=== PATIENT | female | born 1970 | race African-American/Black ===

== ENCOUNTER 2022-10-09 08:41 | Outpatient (CLI) | payer SELFPAY ==
[2022-10-09 18:24] LABS: Basophils Percent Auto 0.6 % (0.2-1.2); Eosinophils Absolute Auto 0.1 K/mm3 (0-0.3); Eosinophils Percent Auto 2.4 % (0-4.4); Hematocrit 41.5 % (37.0-47.0); Immature Granulocyte Absolute 0.01 K/mm3 (0.00-0.031); Immature Granulocyte Percent A 0.2 % (0-0.5); Lymphocytes Absolute Auto 1.69 K/mm3 (0.9-3.2); Lymphocytes Percent Auto 33.1 % (18.3-44.2); Mean Corpuscular HGB Conc 31.3 g/dl (32-36); Mean Corpuscular Hemoglobin 30.4 pg (26-34); Mean Platelet Volume 9.6 fl (7.4-10.4); Monocytes Absolute Auto 0.3 K/mm3 (0.1-0.6); Monocytes Percent Auto 6.5 % (2.6-8.5); Neutrophils Absolute Auto 2.9 K/mm3 (1.3-6.7); Neutrophils Percent Auto 57.2 % (45.5-73.1); Platelet Count Result 295 k/mm3 (150-375); Red Blood Count 4.28 M/mm3 (4.2-5.4); Red Cell Distribution Width 12.6 % (11.5-14.5); White Blood Count 5.1 K/mm3 (4.5-10.0)
[2022-10-09 19:15] LABS: Alanine Aminotransferase 20 U/L (6-35); Albumin Level 4.3 g/dL (3.5-5.1); Alkaline Phosphatase 75 U/L (38-126); Anion Gap 4 mmol/L (8-16); Aspartate Amino Transferase 42 U/L (14-36); Bilirubin,Total 0.5 mg/dL (0.2-1.3); Blood Urea Nitrogen 13 mg/dL (7-17); Calcium 9.5 mg/dL (8.4-10.2); Carbon Dioxide 31 mmol/L (22-30); Chloride 104 mmol/L (98-107); Cholesterol 235 mg/dL (0-200); Estimated Glomerular Filt Rate > 60; Glucose 83 mg/dL (65-110); HDL Direct 91 mg/dL; Potassium 4.2 mmol/L (3.4-5.0); Sodium 139 mmol/L (137-145); Triglycerides 63 mg/dL (<150)
[2022-10-09 19:30] LABS: LDL Cholesterol Direct 86 mg/dL
[2022-10-09 19:32] LABS: Thyroid Stimulating Hormone 0.823 uIU/mL (0.465-4.680)
[2022-10-09 20:21] LABS: Hemoglobin A1C 4.7 % (<5.7)
== END 2022-10-09 08:42 | disposition home or self-care (01) ==
LOC: ANHGOSHLAB 08:54
PROVIDERS: PCP Physician Assistant; Visit Provider Physician Assistant
DX: R53.83 Other fatigue (principal); E78.2 Mixed hyperlipidemia; Z13.1 Encounter for screening for diabetes mellitus
CPT/HCPCS: 36415; 80053; 80061; 83036; 84443; 85025

== ENCOUNTER 2022-10-10 03:19 | Emergency (ER) | payer OTHER, SELFPAY ==
[2022-10-10 03:22] VITALS: BP 108/74; PULSE 86; RESP 18; TEMP 36.4; O2SAT 99
--- NOTE | 2022-10-10 03:39 | ED.GENADULT ---
HPI - General Adult General Chief complaint: Extremity Injury, Upper Stated complaint: right shoulder pain Time Seen by Provider: 10/10/22 03:32 History of Present Illness HPI narrative: This is a 51-year-old female presenting ED with complaint of right shoulder pain. Patient states she was lifting heavy objects at work on . And then on Sunday and over the weekend she started developed pain in her right trapezius. It is worse when she moves her arm. She has taken Tylenol, Biofreeze, icy Hot and heat packs over the weekend with some improvement in her symptoms. She denies numbness tingling or weakness. There was no traumatic event. She has had issues with her shoulder in the past that required 2 courses of physical therapy. Related Data Allergies Allergy/AdvReac Type Severity Reaction Status Date / Time No Known Allergies Allergy Verified 10/10/22 03:19 Exam Narrative: APPEARANCE: No apparent distress. Head: atraumatic. EYES: EOMI, NOSE: Atraumatic NECK: Trachea midline RESPIRATORY: No increased rate of breathing CARDIOVASCULAR: RRR, ABDOMINAL: Non-distended MUSCULOSKELETAl: Tenderness to palpation over the right trapezius and rhomboid muscles. No overlying skin changes. No weakness or sensory loss in the arm. Radial ulnar median nerve distributions are functionally intact. Pulses are strong cap refills less than 2 seconds. NEURO: Alert. Moving 4/4 extremities SKIN:: Warm, dry. Normal color PSYCHIATRIC: Normal affect Course Vital Signs Vital signs: Vital Signs Temperature 97.5 F L 10/10/22 03:22 Pulse Rate 86 10/10/22 03:22 Respiratory Rate 18 10/10/22 03:22 Blood Pressure 108/74 10/10/22 03:22 Pulse Oximetry 99 10/10/22 03:22 Oxygen Delivery Room Air 10/10/22 03:22 Temperature 97.5 F L 10/10/22 03:22 Pulse Rate 86 10/10/22 03:22 Respiratory Rate 18 10/10/22 03:22 Blood Pressure 108/74 10/10/22 03:22 Pulse Oximetry 99 10/10/22 03:22 Oxygen Delivery Room Air 10/10/22 03:22 Medical Decision Making [facility] Narrative Medical decision making narrative: -Presentation: 51-year-old female presenting with shoulder pain. 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 She lives alone -External Chart Review: none -Hx from independent Sources: none -Discussion of Management/Consultants: none -Independent interpretation of studies: none Dx tests considered but not ordered: x-ray- no traumatic injury -Procedures: none -Interventions: Motrin, Robaxin -Shared decision making / Disposition: patient will be discharged with primary care follow-up. -RX Motrin Tylenol Robaxin Vital Signs Vital Signs: Vital Signs Temperature 97.5 F L 10/10/22 03:22 Pulse Rate 86 10/10/22 03:22 Respiratory Rate 18 10/10/22 03:22 Blood Pressure 108/74 10/10/22 03:22 Pulse Oximetry 99 10/10/22 03:22 Oxygen Delivery Room Air 10/10/22 03:22 Temperature 97.5 F L 10/10/22 03:22 Pulse Rate 86 10/10/22 03:22 Respiratory Rate 18 10/10/22 03:22 Blood Pressure 108/74 10/10/22 03:22 Pulse Oximetry 99 10/10/22 03:22 Oxygen Delivery Room Air 10/10/22 03:22 Discharge Plan Discharge Clinical Impression: Muscle strain Patient Disposition: Home, Self-Care Condition: Stable Instructions: Antibiotic Form, Musculoskeletal Pain (ED) Additional Instructions: You were seen in the emergency department for shoulder pain. Please take Motrin Tylenol Robaxin for symptoms. Please follow-up your primary care physician. Follow-up/Referrals: Yamil,PANKAJ Dietz [Primary Care Provider] -
[2022-10-10] MEDS: methocarbamoL 750 MG TABLET 1500 MG PO (03:49)
[2022-10-10] MEDS: IBUPROFEN 400 MG TABLET 800 MG PO (03:50)
== END 2022-10-10 03:54 | disposition home or self-care (01) ==
PROVIDERS: Emergency Provider Emergency Medicine; PCP Physician Assistant
DX: S46.911A Strain of unspecified muscle, fascia and tendon at shoulder and upper arm level, right arm, initial encounter (principal); X50.0XXA Overexertion from strenuous movement or load, initial encounter
CPT/HCPCS: 99283; A9270

== ENCOUNTER 2023-12-07 15:30 | Outpatient (RCR) | payer OTHER, SELFPAY ==
--- NOTE | 2023-10-30 14:11 | OPREHPOC ---
Outpatient Therapy Plan of Care This is a Multidisciplinary Plan of Care that may contain components documented by all disciplines (PT, OT, and ST.) PT Problem 1 PT Problem #1 Knowledge Deficit PT Goal 1 Goal * indep with HEP Target Visit 10 PT Problem 2 PT Problem #2 Pain PT Goal 1 Goal 1* decrease pain to 5/10 at worst 2* self assessment LE functional scale rating of 48% limitation in activity level Target Visit 10 PT Problem 3 PT Problem #3 Impaired Flexibility PT Goal 1 Goal increase R ankle ROM to improve gait pattern and balance skills: in long sitting position 1* DF 10' 2* PF 45' 3* inversion 20' 4* eversion 10' Target Visit 10 PT Problem 4 PT Problem #4 Impaired Strength PT Goal 1 Goal increase strength of R ankle/foot to improve gait and balance skills: 1* single leg standing x 10 seconds with good stability 2* with walking, 300', good heel strike R 3* with walking 300', equal stance phase R/L 4* standing bilateral ankle PF x 20 reps without UE support Target Visit 10
--- NOTE | 2023-10-30 14:11 | PTOPEVAL1 ---
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 sleeping OK at night; Assessment PT Clinical Summary Karis has the diagnosis of 5th metatarsal fracture s/p fall and Achilles tendonitis. She was immobilized/ non surgical. Self assessment LE functional scale of 69% limitation in activity level. She has not been working, but starts a new job tomorrow. Walking and standing increase her pain. And she has not done much activity due to fracture, or any leg/ ankle exercises. With the evaluation: she has decreased ROM and strength of R ankle and toe flexion; 2 minute walking test distance of 425' with pain increase to 6/10; gait pattern with limp on R LE and decreased heel strike. Slight edema over R ankle with the 3 circumferential measurements within 1 cm of L ankle. Skilled PT services are indicated for modalities to decrease pain; therapeutic exercises and activities to increase ankle ROM and strength, balance and proprioception, with education for HEP and gait retraining.
--- NOTE | 2023-11-20 15:18 | PCPTNOTE ---
Canceled reason unknown. AKS
--- NOTE | 2023-12-07 16:15 | PTOPDC ---
Assessment and note entered by Khushi Santos, PT Discharge Report Assessment Status Discharge Diagnosis 5th metatarsal fracture, achilles tendinitis R Onset August 2023 Subjective Information doing better; wearing the compression sock and that helps; doing exercises at home; feel like OK to be finished with therapy; Reported Pain Level Pain Score Self Report Additional Pain Score Comments pain range in the past week of 0-2/10; sharp, shooting pain that lasts only a few seconds when walking, 2-3 x/day over top of foot; tender sometimes over lateral malleoli use ice and lidocain rub for the pain can be up on feet/ walking- standing about 4 hours then rest; Assessment PT Clinical Summary Karis has received 8 PT sessions. Compared to the initial evaluation: pain from 5-10/10 to 0-2/10; increase reported standing- walking tolerance from 3-4 to 4 hours; self assessment with LE functional scale from 69% to 14% limitation; wearing the compression socks decrease her pain; increase active ROM of ankle with all motions- now equal to L ankle; tightness reported over lateral malleoli with inversion and eversion motions; good gait pattern; education for HEP. The goals were achieved, except single leg standing time. Discharge PT services. Karis is to continue with the HEP. Plan of Care PT Services Indicated No
== END 2023-12-10 08:27 | disposition home or self-care (01) ==
LOC: ANHPT 15:30
PROVIDERS: PCP Physician Assistant
DX: M79.671 Pain in right foot (principal); M76.61 Achilles tendinitis, right leg; S92.351D Displaced fracture of fifth metatarsal bone, right foot, subsequent encounter for fracture with routine healing
CPT/HCPCS: 97014; 97016; 97110; 97116; 97140; 97161; 97530; G0283

== ENCOUNTER 2023-12-08 15:02 | Emergency (ER) | payer OTHER, MEDICAID, SELFPAY ==
--- NOTE | ~2023-12-08 | XR_ITS ---
EXAMINATION: XR ankle RT min 3V DATE: 12/08/2023 16:17 INDICATION: Right ankle pain TECHNIQUE: Anteroposterior, oblique, mortise, and lateral views of the right ankle were obtained. COMPARISON: None. FINDINGS: Alignment is normal. No fracture. Joint spaces are well maintained. Mild subarticular cystic change along the dorsal distal articular surface of the talus. Small plantar calcaneal spur. No cortical ero sions or periosteal reaction. No ankle joint effusion. Focal soft tissue swelling at the dorsal/media l hindfoot. IMPRESSION: 1. Nonspecific soft tissue swelling at the dorsomedial hindfoot. No acute osseous abnormality. Reviewed, dictated and finalized at location A. IMPRESSION: 1. Nonspecific soft tissue swelling at the dorsomedial hindfoot. No acute osseo us abnormality.
[2023-12-08 15:05] VITALS: BP 109/69; PULSE 90; RESP 20; TEMP 36.3; O2SAT 99
--- NOTE | 2023-12-08 16:23 | ED.EXTPRO ---
HPI - Extremity Problem General Chief complaint: Extremity Problem,Nontraumatic Stated complaint: Swolling and pain to L foot Time Seen by Provider: 12/08/23 15:24 History of Present Illness HPI Narrative: 53-year-old female presents to the emergency department for evaluation for recurrent right ankle pain. Patient states the pain has been bothering her for many months. Patient describes the pain as being worsened with walking and ambulation. Patient does have lower arches on both feet. Patient denies any fall or injury. Patient denies any pain, proximal tib-fib or in the foot. Patient does have follow-up scheduled with primary care physician Related Data Allergies Allergy/AdvReac Type Severity Reaction Status Date / Time No Known Allergies Allergy Verified 12/08/23 15:03 Review of Systems Review of Systems: All systems reviewed & are unremarkable except as noted in HPI and below Exam Narrative: APPEARANCE: Well appearing, no pain, no distress, well-nourished. HEAD: normocephalic, atraumatic. EYES: PERRLA/EOMI, conjunctivae clear. NOSE: Normal no drainage EARS:TMS clear with good light reflex. THROAT: Pharynx clear, no exudate. NECK: Supple. No adenopathy, no masses. RESPIRATORY: Airway patent, respirations nonlabored. Clear to auscultation bilaterally, no rales, rhonchi, wheezing. CARDIOVASCULAR: Regular rate and rhythm without murmurs rubs or gallops. ABDOMINAL: Soft, nontender, nondistended, normal bowel sounds MUSCULOSKELETAL: Left medial ankle tenderness to palpation with no deformity or edema NEURO: Alert. Cranial nerves II through XII intact. Grossly intact Course Vital Signs Vital signs: Vital Signs Temperature 97.3 F L 12/08/23 15:05 Pulse Rate 90 12/08/23 15:05 Respiratory Rate 12/08/23 15:05 Blood Pressure 109/69 12/08/23 15:05 Pulse Oximetry 99 12/08/23 15:05 Oxygen Delivery Room Air 12/08/23 15:05 Temperature 97.3 F L 12/08/23 15:05 Pulse Rate 90 12/08/23 15:05 Respiratory Rate 20 12/08/23 15:05 Blood Pressure 109/69 12/08/23 15:05 Pulse Oximetry 99 12/08/23 15:05 Oxygen Delivery Room Air 12/08/23 15:05 MDM - Extremity (Nontraumatic) MDM Narrative Medical decision making narrative: 53-year-old female presents emergency department for evaluation of 3 months of left ankle pain. X-ray showed no acute fractures or dislocations. Patient wound was provided Franck wrap and crutches for limited weight-bearing and rest. Patient was also encouraged to have close follow-up with Orthopedics. All questions concerns were addressed patient was well-appearing at time of discharge. Differential Diagnosis Differential diagnosis: Likely other (Ankle fracture, ankle sprain, ankle contusion) Discharge Plan Discharge Clinical Impression: Ankle pain, chronic Patient Disposition: Home, Self-Care Condition: Stable Instructions: Antibiotic Form, Ankle Sprain (ED), Arthralgia (ED) Additional Instructions: Franck wrap for comfort, crutches for limited weight-bearing. Have close follow-up with Orthopedics. If you have any worsening symptoms then please call or return to the emergency department. Prescriptions: No Action ibuprofen 800 mg tablet 800 mg PO TID PRN (Reason: pain) 7 Days Qty: 21 0RF acetaminophen 500 mg tablet 1,000 mg PO TID PRN (Reason: felicia) 7 Days Qty: 42 0RF methocarbamol 750 mg tablet 1,500 mg PO TID Qty: 30 0RF Follow-up/Referrals: Harpreet Fung MD [Physician] - Yamil,PANKAJ Dietz [Primary Care Provider] -
--- NOTE | 2024-01-01 13:51 | PC.NURSE ---
LATE ENTRY This note is being entered to document information to the patient's record. The following information was omitted on [12/08/2023], by [this RN]. Correct documentation to be right ankle instead of left.
== END 2023-12-08 17:28 | disposition home or self-care (01) ==
PROVIDERS: Emergency Provider Emergency Medicine; PCP Physician Assistant
DX: M25.571 Pain in right ankle and joints of right foot (principal); G89.29 Other chronic pain
CPT/HCPCS: 73610; 99283

== ENCOUNTER 2024-10-28 10:00 | Outpatient (RCR) | payer OTHER, SELFPAY ==
--- NOTE | 2024-08-29 09:59 | OPREHPOC ---
Outpatient Therapy Plan of Care This is a Multidisciplinary Plan of Care that may contain components documented by all disciplines (PT, OT, and ST.) PT Problem 1 PT Problem #1 Knowledge Deficit PT Goal 1 Goal / Goal Update *independent with HEP Target Visit 8 PT Problem 2 PT Problem #2 Pain PT Goal 1 Goal / Goal Update * pt report pain at worst of 11/27 Target Visit 8 PT Goal 2 Goal / Goal Update * pt report 2 headaches/week * radicular pain into R arm to elbow at worst Target Visit 8 PT Problem 3 PT Problem #3 Impaired Flexibility PT Goal 1 Goal / Goal Update * decrease muscle spasms and tightness with improved cervical ROM for ease with home and self care tasks: 1* cervical rotation to R 80' no pain with cervical active 2* rotation R 3* flexion 4* retraction 5* side bend to R Target Visit 8 PT Problem 4 PT Problem #4 Impaired Strength PT Goal 1 Goal / Goal Update *increase cervical thoracic strength, pt able to maintain correct neck and shoulder posture during PT session Target Visit 8
--- NOTE | 2024-08-29 10:00 | PTOPEVAL1 ---
Assessment and note entered by Khushi Santos, PT Evaluation Information Assessment Status Evaluation ICD-10 Condition Codes (PT) Cervicalgia M54.2,Pain in right knee M25.561 Onset May 2024 Subjective Information to ER in May due to increase neck pain; started working in [employer] and more lifting, more neck pain and had to quit; got another job with less lifting. 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 She reports her neck is the main concern at this time. With headaches and sleep disrupted. Self assessment Neck Disability Index rating of 36% limitation and radicular pain into R UE to palm. 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 With the evaluation: decreased cervical rotation to R with pain, also pain with cervical flexion, retraction and side bend to R; R shoulder active ROM is WNL with reports of pain; spasms and tenderness with palpation over R and L cervical and upper traps. Skilled PT services are indicated for modalities to decrease pain and spasms; therapeutic exercises to improve posture and position and cervical flexibility with education for HEP and body mechanics. Plan of Care Interventions Electrical Stimulation,Hot Pack/Cold Pack,Manual Therapy,Mechanical Traction,Neuro Re-education, Patient/Caregiver Education,Therapeutic Activities ,Therapeutic Exercise,Ultrasound,Other Other Interventions taping, dry needling--pt agreed to it PT Services Indicated Yes Treatment Frequency and 1-2x/wk for 8 visits Duration These treatments will address the objective and functional deficits as defined above. The patient will be advanced safely and appropriately in order for the patient to progress towards his/her prior level of function. Additional exercises will be introduced and as well as a comprehensive home exercise program upon discharge, if needed, ?to ensure carryover of functional gains achieved in the clinic. This treatment plan has been reviewed and agreement upon by the patient.
--- NOTE | 2024-10-10 11:17 | PCPTNOTE ---
pt called and left a message on voice mail to cancel today's reeval appt. This message received by PT 15 minutes after the appt time.
--- NOTE | 2024-10-28 10:41 | OPREHPOC ---
Outpatient Therapy Plan of Care This is a Multidisciplinary Plan of Care that may contain components documented by all disciplines (PT, OT, and ST.) PT Problem 1 PT Problem #1 Knowledge Deficit PT Goal 1 Goal / Goal Update *independent with HEP 10-28-24 progress to see , await new orders to continue treatment goal met continue to progress HEP and education Target Visit 16 PT Problem 2 PT Problem #2 Pain PT Goal 1 Goal / Goal Update * pt report pain at worst of 11/27 10-28-24 progress to see , await new orders to continue treatment goal not met, 810 at worst continue towards goal Target Visit 16 PT Goal 2 Goal / Goal Update 1* pt report 2 headaches/week 2 * radicular pain into R arm to elbow at worst 10-28-24 progress to see , await new orders to continue treatment goal 1 met continue towards goal 2 Target Visit 16 PT Problem 3 PT Problem #3 Impaired Flexibility PT Goal 1 Goal / Goal Update * decrease muscle spasms and tightness with improved cervical ROM for ease with home and self care tasks: 1* cervical rotation to R 80' no pain with cervical active 2* rotation R 3* flexion 4* retraction 5* side bend to R 10-28-24 progress to see , await new orders to continue treatment goals 2,3,4,5 met NEW goals: 1* active cervical rotation R 80' 2* active cervical rotation L 80' 3* no pain with R shoulder IR motion Target Visit 16 PT Problem 4 PT Problem #4 Impaired Strength PT Goal 1 Goal / Goal Update *increase cervical thoracic strength, pt able to maintain correct neck and shoulder posture during PT session 10-28-24 progress to see await new orders to continue treatment goal partially met continue towards Target Visit 16
--- NOTE | 2024-10-28 10:41 | PTOPPROG ---
Assessment and note entered by Khushi Santos, PT Assessment Status Progress ICD-10 Condition Codes (PT) Cervicalgia M54.2 R shoulder pain Onset May 2024 Subjective Information neck and shoulder still hurt, some better, but still bother me; going back to the dr next week and hope to get an MRI done have been doing the exercises at home; PAIN: range in the past week 3-8/10; nerve pain: R side of neck and shoulder- front and back of shoulder; throb in R side of head; intermittent pain into R palm increase pain: lifting heavy things, lie on stomach and lift arm up/back decrease pain: resting, heat, tiger balm ointment have headache 1-2x/wk --off and on through out the day report with sleeping 1-2x/week awaken due to pain Assessment PT Clinical Summary Mar has received 8 PT sessions, from August 29 to today. She called and canceled 1 appointment. Compared to the initial evaluation: pain rating from 5-10/10 to 3-8/10; continues to have radicular pain intermittent into R palm of her hand; reported headaches from 1-2x/day to 1-2 x/ wk and with sleeping awaken 2-3 x/night to 1-2x/wk due to pain; self assessment with Neck Index rating from 36% to 34% limitation in activity level; cervical rotation to R and L is slightly less ROM; cervical active flexion, extension, rotation R/L and side bend R/L do not increase pain; R shoulder IR increases pain; education completed for HEP, pain management and posture. The goals were partially achieved. She is to follow up with her medical provider next week, discuss her status. If PT is to continue, she is to obtain a new script. Plan of Care Interventions Electrical Stimulation,Hot Pack/Cold Pack,Manual Therapy,Mechanical Traction,Neuro Re-education, Patient/Caregiver Education,Therapeutic Activities ,Therapeutic Exercise,Ultrasound,Other Other Interventions taping, PT Services Indicated Yes Treatment Frequency and 1-2x/wk for 8 visits Duration These treatments will address the objective and functional deficits as defined above. The patient will be advanced safely and appropriately in order for the patient to progress towards his/her prior level of function. Additional exercises will be introduced and as well as a comprehensive home exercise program upon discharge, if needed, ?to ensure carryover of functional gains achieved in the clinic. This treatment plan has been reviewed and agreement upon by the patient.
--- NOTE | 2024-12-05 10:58 | PCPTNOTE ---
PHYSICAL THERAPY DISCHARGE 12-05-24 PANKAJ Flores Mar has not returned for any additional therapy treatment since the progress report dated 10-28-24. Discharge PT.
== END 2024-11-27 23:59 | disposition home or self-care (01) ==
LOC: ANHPT 10:00
PROVIDERS: PCP Physician Assistant; Visit Provider Physician Assistant
DX: M54.2 Cervicalgia (principal); M25.511 Pain in right shoulder; M25.561 Pain in right knee
CPT/HCPCS: 97014; 97110; 97140; 97161; 97530; G0283

== ENCOUNTER 2025-01-05 12:10 | Emergency (ER) | payer SELFPAY ==
[2025-01-05 12:20] VITALS: BP 131/76; PULSE 98; RESP 18; TEMP 36.8; O2SAT 100
--- OUTSIDE RECORDS SUMMARY | 2025-01-05 13:04 | XMS_ITS | Clinical Summary ---
Author Organization [facility] Health Address [address] [place] [address] Care Team Providers Care Anchor Operator Name Role Phone Mirela Lobo PA-C Primary Care Provider [phone] Source Comments [facility],non-owned Affiliates and Associated Physician Practices is amultiple site organization consisting of ambulatory clinics and hospital sitesin [place], [place], [place] and [place]. This disclosure is being madepursuant to the Care Everywhere program and may not contain all information available regarding this patient. Last updated 18.[facility] [employer] Allergies No known active allergies Encounters Date Type Department Care Team Description 12/30/2024 Telephone [facility] - Orthopedics [address] [place] [address] Naina Curran Appointment from Last 3 Months Social History Tobacco Use Types Packs/Day Years Used Date Smoking Tobacco: Never Alcohol Use Standard Drinks/Week Comments Yes 0 (1 standard drink = 0.6 oz pur e alcohol) socially Comments Unknown Sex and Gender Information Value Date Recorded Sex Assigned at Not on file Legal Sex Female 7:09 AM CDT Gender Identity Not on file Sexual Orientation Not on file Last Filed Vital Signs Vital Sign Reading Time Taken Comments Blood Pressure 118/82 07/14/2019 1:54 PM UNIX ADMINISTRATOR Pulse 95 07/14/2019 1:54 PM UNIX ADMINISTRATOR Temperature 36.5 C (97.7 F) 07/14/2019 1:54 PM UNIX ADMINISTRATOR Respiratory Rate 18 07/14/2019 1:54 PM UNIX ADMINISTRATOR Oxygen Saturation 99% 07/14/2019 1:54 PM UNIX ADMINISTRATOR Inhaled Oxygen Concentration - - Weight 68 kg (150 lb) 07/14/2019 1:54 PM UNIX ADMINISTRATOR Height 177.8 cm (5' 10) 07/14/2019 1:54 PM UNIX ADMINISTRATOR Body Mass Index 21.52 07/14/2019 1:54 PM UNIX ADMINISTRATOR Plan of Treatment Health Maintenance Due Date Last Done Comments COLOGUARD (AGES 45-75) - COL ON CA SCREENING 1972 COLON MONITORING 1972 COLONOSCOPY - COLON CA SCREENING 1972 CT COLONOGRAPHY - COLON CA SCREENING 1972 Colorectal Cancer Screening 1972 FIT - COLON CA SCREENING 1972 FLEX SIG - COLON CA SCREENING 1972 LIPID TESTING 1972 MAMMOGRAM 1972 HIV SCREENING 11/19/1987 HEPATITIS C SCREENING 11/14/1990 DTAP/TDAP/TD VACCINES (1 - Tdap) 11/19/1991 HEPATITIS B VACCINE (1 of 3 - 19+ 3-dose series) 11/19/1991 PAP SMEAR 1993 PNEUMOCOCCAL VACCINE 50+ (1 of 1 - PCV) 2022 ZOSTER VACCINE (1 of 2) 2022 COVID-19 VACCINE (1 - 2023-2 5 season) 2024 DEPRESSION SCREENING 05/21/2024 INFLUENZA VACCINE (#1) 2025 HIB VACCINE Aged Out No longer eligi ble based on patient's age to complete this topic HPV VACCINE Aged Out No longer eligi ble based on patient's age to complete this topic MENINGOCOCCAL (Group B) VACC INE SHARED DECISION-MAKING Aged Out No longer eligibl e based on patient's age to complete this topic MENINGOCOCCAL GROUPS A/C/Y/W VACCINE Aged Out No longer eligible b ased on patient's age to complete this topic Insurance [facility] Care Teams Anchor Operator Relationship Specialty Start Date End Date Mirela Lobo PA-C PCP - General Physician Retail Account Executive 07/15/19
--- OUTSIDE RECORDS SUMMARY | 2025-01-05 13:04 | XMS_ITS | Encounter Summary ---
Author Organization [facility] Healthcare Address [address] [place] [address] Care Team Providers Care Director Of Field Sales Name Role Phone Mirela Lobo Primary Care Provider [phone] Reason for Visit * Reason Onset Date Comments Med Refill 12/23/2024 Encounter Details Date Type Department Care Team (Late st Contact Info) Description 12/23/2024 Telephone [facility] Family Medicine [address] [place] [address] Mirela Lobo PA [address] [place] [address] Med Refill Social History Tobacco Use Types Packs/Day Years Used Date Smoking Tobacco: Never Smokeless Tobacco: Never Alcohol Use Standard Drinks/Week Comments Yes 0 (1 standard drink = 0.6 oz pur e alcohol) AUDIT-C Answer Date Recorded Q1: How often do you have a drink containing alc ohol? Monthly or less 11/04/2024 Q2: How many drinks containi ng alcohol do you have on a typical day when you are drinking? 1 or 2 11/04/2024 Q3: How often do you have si x or more drinks on one occasion? 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 Not on file Not on fi le Not on file documented as of this encounter Miscellaneous Notes * Telephone Encounter - Shayy Hernandez MA - 12/23/2024 4:29 PM CDT Pt aware and new med sent to [facility]. * Telephone Encounter - Mirela Lobo PA - 12/23/2024 3:00 PM CDT We could start Gabapentin 100mg to see if it helps with the pain. Side effects include sedation so be careful until she is use to the medication. The sedation is usually less at lower doses so we will increase slowly as needed for symptoms and as she tolerates. * Telephone Encounter - Lyudmila Davies - 12/23/2024 1:46 PM CDT Medical Question/Miscellaneous Caller???s Concern: patient is asking for a different muscle relaxer for her back, Meloxicam is notstrong enough. She had to miss work today due to the pain [id number] - [facility] [address] Does message need to be routed? Yes-Action Needed documented in this encounter Plan of Treatment Not on file documented as of this encounter Visit Diagnoses Not on filedocumented in this encounter Care Teams Director Of Field Sales Relationship Specialty Start Date End Date Mirela Lobo PA [address] [place] [address] PCP - General Internal Medicine 01/28/19 documented as of this encounter
--- OUTSIDE RECORDS SUMMARY | 2025-01-05 13:04 | XMS_ITS | Clinical Summary ---
Author Organization [facility] Address [address] [place] [address] Care Team Providers Care Drum Plater Name Role Phone Mirela Lobo Primary Care Provider [phone] Allergies No known active allergies Medications multivit-min/fe rrous fumarate (MULTI VITAMIN ORAL) Take 1 tablet by mouth daily Active cetirizine (ZyrTEC) 10 mg tablet Take 1 tablet (10 mg total) by mouth daily 90 tablet 3 4 Active fluticasone propionate (FLONASE) 50 mcg/actuation nasal spray Administer 1 spray into each nostril daily 48 g 3 4 Active montelukast (SINGULAIR) 10 mg tablet Take 1 tablet (10 mg total) by mouth nightly 90 tablet 3 5 Active gabapentin (NEURONTIN) 100 mg capsuleIndicati ons:Cervical radiculopathy,N ruchi pain Take 1 capsule (100 mg total) by mouth 3 (three) times a day 90 capsule 5 01/23/20 25 Active Active Problems Problem Noted Date Diagnosed Date Cervical radiculopathy 11/16/2024 BMI 30.0-30.9,adult 11/04/2024 Assessment & Plan (11/04/2024 9:04 AM CDT): Discussed the patient's BMI. The BMI is above average. BMI management plan is completed. BMI Follow-up includes: nutrition counseling, exercise counseling and education provided. Neck pain 08/09/2024 Assessment & Plan (08/09/2024 10:01 PM CDT): Patient has noticed increased neck pain that seems to go into the right arm. Pain with extension and rotation of the neck. Will at times have numbness that runs all the way down into the right palm but not all the way to the fingers. Will start with a C-spine x-ray. Encouraged physical therapy. If symptoms persist beyond physical therapy may need an MRI of the C-spine. She has also noticed increased knee pain. Will do therapy simultaneously. Known known injury Chronic pain of right knee 08/09/2024 Assessment & Plan (08/09/2024 10:00 PM CDT): She has also noticed increased knee pain. Will do therapy simultaneously. Known known injury Candidiasis of vagina 10/17/2023 Herpes simplex 10/17/2023 Uterine leiomyoma 10/17/2023 Closed displaced fracture of fifth metatarsal bone of right foot 10/04/2023 Assessment & Plan (03/19/2024 8:49 AM CDT): Patient is doing well overall. X-rays and physical exam indicate that her fracture is well healed. At this time, she may continue to advance activity as tolerated and may follow up p.r.n. She expressed understanding and agreement with the plan. Assessment & Plan (12/17/2023 12:05 PM CDT): The patient's fracture appears to be healing very well, with minimal pain on exam and good healing based on x-ray imaging. She will continue to advance her activity as tolerated in a sturdy tennis shoe. She will follow up in 3 months for final x- rays. She expressed understanding and agreement with the plan. Assessment & Plan (10/04/2023 5:40 AM CDT): X-ray confirmed closed displaced fracture of the 5th metatarsal at the base in the right foot. Has not had an x-ray and over a month. Will obtain. Advised because it is at the base she probably should see Podiatry or ortho. She would like to get the x-ray 1st. Order provided follow-up pending the results Continue with hard soled shoe and elevation, ice and anti-inflammatories as tolerated Annual physical exam 07/18/2023 Assessment & Plan (08/09/2024 9:58 PM CDT): Encouraged healthy lifestyle, good nutrition and exercise. Encouraged Calcium and Vitamin D and weight bearing exercise for bone health. Reviewed immunizations Reviewed age appropirate screenings. Assessment & Plan (07/18/2023 10:45 PM BIOMASS BOILER OPERATOR): Encouraged healthy lifestyle, good nutrition and exercise. Encouraged Calcium and Vitamin D and weight bearing exercise for bone health. Reviewed immunizations Reviewed age appropirate screenings. Skin lesion 07/18/2023 Chronic right shoulder pain 07/18/2023 Assessment & Plan (07/18/2023 10:43 PM BIOMASS BOILER OPERATOR): Patient is complaining of right shoulder pain and left-sided sciatica. Discussed anti-inflammatories to help with her symptoms. Offered x-rays but patient declined. Offered physical therapy and patient declined. If symptoms persist and she decides she wants to pursue she may call at any time Sciatica of left side 07/18/2023 Assessment & Plan (07/18/2023 10:43 PM BIOMASS BOILER OPERATOR): Patient is complaining of right shoulder pain and left-sided sciatica. Discussed anti-inflammatories to help with her symptoms. Offered x-rays but patient declined. Offered physical therapy and patient declined. If symptoms persist and she decides she wants to pursue she may call at any time Breast cancer screening by mammogram 03/29/2022 Assessment & Plan (08/09/2024 9:58 PM CDT): Mammogram order provided Assessment & Plan (07/18/2023 10:44 PM BIOMASS BOILER OPERATOR): Mammogram order provided Assessment & Plan (03/29/2022 2:50 PM BIOMASS BOILER OPERATOR): Mammogram order provided Diabetes mellitus screening 03/29/2022 Assessment & Plan (07/18/2023 10:44 PM BIOMASS BOILER OPERATOR): Check labs Assessment & Plan (09/26/2022 9:04 PM CDT): Check labs Assessment & Plan (03/29/2022 2:51 PM BIOMASS BOILER OPERATOR): Check labs Fatigue 02/25/2021 Assessment & Plan (08/09/2024 9:58 PM CDT): Probably multifactorial. Check labs and followup to re-evaluate Assessment & Plan (07/18/2023 10:44 PM BIOMASS BOILER OPERATOR): Probably multifactorial. Check labs and followup to re-evaluate Assessment & Plan (09/26/2022 9:04 PM CDT): Probably multifactorial. Check labs and followup to re-evaluate Assessment & Plan (03/29/2022 2:50 PM BIOMASS BOILER OPERATOR): Probably multifactorial. Check labs and followup to re-evaluate Assessment & Plan (02/25/2021 8:48 AM CDT): Probably multifactorial. Check labs and followup to re-evaluate Leg cramps 02/25/2021 Assessment & Plan (02/25/2021 8:49 AM CDT): Check labs including magnesium to rule out electrolyte issues. Encouraged stretching and staying hydrated. If they persist she is to follow up for further evaluation Seasonal allergies 03/06/2020 Assessment & Plan (08/09/2024 9:58 PM CDT): Stable with Zyrtec Singulair and Flonase Assessment & Plan (07/18/2023 10:45 PM BIOMASS BOILER OPERATOR): Continue Zyrtec Flonase and Singulair Assessment & Plan (09/26/2022 9:03 PM CDT): Continue Zyrtec Singulair and Flonase Assessment & Plan (03/29/2022 2:49 PM BIOMASS BOILER OPERATOR): Continue with Singulair Zyrtec and Flonase. Refills sent to pharmacy. Assessment & Plan (02/23/2021 11:23 PM CDT): Continue current regimen of Flonase and Zyrtec and Singulair. Assessment & Plan (03/06/2020 10:59 PM CDT): Continue current regimen. Mixed hyperlipidemia 02/21/2019 Overview (02/21/2019): HDL is excellent Assessment & Plan (08/09/2024 9:58 PM CDT): Encouraged patient to follow low fat/low chol diet like the Mediterranean diet. Increase good fats in the diet. Increase exercise. Monitor labs as needed. Assessment & Plan (07/18/2023 10:44 PM BIOMASS BOILER OPERATOR): Encouraged patient to follow low fat/low chol diet like the Mediterranean diet. Increase good fats in the diet. Increase exercise. Monitor labs as needed. Assessment & Plan (03/29/2022 2:49 PM BIOMASS BOILER OPERATOR): Encouraged patient to follow low fat/low chol diet like the Mediterranean diet. Increase good fats in the diet. Increase exercise. Monitor labs as needed. HDL is excellent but her LDL and total continue to increase. Will recheck labs in 6 months and reassess at that time. Assessment & Plan (02/23/2021 11:22 PM CDT): Managing with diet. HDL is excellent Assessment & Plan (03/06/2020 10:53 PM CDT): Encouraged patient to follow fat/low chol diet like the Mediterranean diet. Increase good fats in the diet. Increase exercise. Monitor labs as needed. HDL is excellent Resolved Problems Problem Noted Date Diagnosed Date Resolved Date BMI 28.0-28.9,adult 07/31/2024 06/17/20 25 Assessment & Plan (07/31/2024 8:53 AM CDT): Discussed the patient's BMI. The BMI is above average. BMI management plan is completed. BMI Follow-up includes: nutrition counseling, exercise counseling and education provided. BMI 25.0-25.9,adult 09/26/2022 06/27/19 24 Assessment & Plan (09/26/2022 2:41 PM CDT): Weight/BMI is in healthy range. Continue healthy lifestyle to maintain. BMI 26.0-26.9,adult 03/29/2022 08/01/19 25 Assessment & Plan (10/04/2023 5:40 AM CDT): Weight/BMI is in healthy range. Continue healthy lifestyle to maintain. Assessment & Plan (07/18/2023 10:44 PM BIOMASS BOILER OPERATOR): Weight/BMI is in healthy range. Continue healthy lifestyle to maintain. Assessment & Plan (03/29/2022 2:21 PM BIOMASS BOILER OPERATOR): Weight/BMI is in healthy range. Continue healthy lifestyle to maintain. Colon cancer screening 03/29/202207/18 Assessment & Plan (09/26/2022 9:04 PM CDT): Colonoscopy scheduled in February with Dr. Ford Assessment & Plan (03/29/2022 2:51 PM BIOMASS BOILER OPERATOR): Refer to [facility] for colonoscopy screening. BMI 25.0-25.9,adult 02/25/2021 03/29/20 22 Assessment & Plan (02/25/2021 8:06 AM CDT): Obesity is unchanged. Discussed the patient's BMI. The BMI is above average. BMI management plan is completed. BMI Follow-up includes: nutrition counseling, exercise counseling and education provided. Influenza vaccine refused 03/06/2020 Assessment & Plan (03/29/2022 2:49 PM BIOMASS BOILER OPERATOR): Flu vaccine updated in the office Assessment & Plan (02/25/2021 8:46 AM CDT): Encouraged vaccine. Reviewed risks/ benefits. Patient refuses and accepts risks. Assessment & Plan (03/06/2020 10:57 PM CDT): Encouraged vaccine. Reviewed risks/ benefits. Patient refuses and accepts risks. BMI 24.0-24.9, adult 02/24/2019 021 Assessment & Plan (03/06/2020 10:54 PM CDT): Weight/BMI is in healthy range. Continue healthy lifestyle to maintain. Assessment & Plan (02/24/2019 3:50 PM CDT): Weight/BMI is in healthy range. Continue healthy lifestyle to maintain. Annual physical exam 02/24/2019 024 Assessment & Plan (03/29/2022 2:49 PM BIOMASS BOILER OPERATOR): Encouraged healthy lifestyle, good nutrition and exercise. Encouraged Calcium and Vitamin D and weight bearing exercise for bone health. Reviewed immunizations Reviewed age appropirate screenings. Assessment & Plan (02/23/2021 11:22 PM CDT): Encouraged healthy lifestyle, good nutrition and exercise. Encouraged Calcium and Vitamin D and weight bearing exercise for bone health. Reviewed immunizations Reviewed age appropirate screenings. Assessment & Plan (03/06/2020 10:54 PM CDT): Encouraged healthy lifestyle, good nutrition and exercise. Encouraged Calcium and Vitamin D and weight bearing exercise for bone health. Reviewed immunizations Reviewed age appropirate screenings. Assessment & Plan (02/25/2019 8:53 PM CDT): Encouraged healthy lifestyle, good nutrition and exercise. Encouraged Calcium and Vitamin D and weight bearing exercise for bone health. Reviewed immunizations Reviewed age appropirate screenings. Breast cancer screening 02/24/2019 10/0 10/2020 Assessment & Plan (02/25/2019 8:53 PM CDT): Mammogram order provided Encounters Date Type Department Care Team Description 12/23/2024 Orders Only [address] [place] [address] Mirela Lobo PA 12/23/[address] [place] [phone] Mirela Lobo PA Med Refill 12/18/2024 Results Follow-Up [address] [place] [phone] Mirela Lobo PA MRI Cervical Spine WO Contrast 12/13/2024 8:36 AM CDT - 12/13/2024 11:59 PM CDT Hospital Encounter [facility] MRI [address] [place] [address] Neck pain Discharge Disposition: Discharge to home or self care 11/04/2024 9:00 AM CDT Office Visit [address] [place] [phone] Mirela Lobo PA Cervical radiculopathy (Primary Dx); Neck pain; BMI 30.0-30.9,adult from Last 3 Months Immunizations Immunization Administration Dates Next Due Influenza, Unspecified 05/21/2024(Deferr ed: Patient Refused),09/24/2023(Deferred: Patient Refused),05/21/2023(Deferred: Patient Refused),06/21/2022(Deferred: Patient Refused),03/29/2022(Deferred: Patient Refused),03/29/2022(Deferred: Patient Refused),06/21/2021(Deferred: Patient Refused),05/21/2020(Deferred: Patient Refused) Pfizer SARS-CoV-2 Monovalent Vaccination (12+ Yrs) PURPLE 10/02/2020 Tdap 03/01/2017 Surgical History Surgery Date Site/Laterality Comments HYSTERECTOMY 05/21/2016 - 05/20/2017 Partial TUBAL LIGATION Medical History Medical History Date Comments Allergic Seasonal Family History Medical History Relation Name Comments Colon cancer Maternal Grandmother Colon polyps Mother Colon cancer Mother's Sister Relation Name Status Comments Father Maternal Grandmother Mother Alive Mother's Sister Social History Tobacco Use Types Packs/Day Years Used Date Smoking Tobacco: Never Smokeless Tobacco: Never Tobacco Cessation:Counseling Given: Not Answered Alcohol Use Standard Drinks/Week Comments Yes 0 [...] Industry Job Start Date Job End Date Loaded [employer]. Not on file Not on fi le Not on file Obstetrics History Para Term AB IAB SAB Ectopic Multiple Livin g Live Births 3 3 3 Date Outcome GA Total Labor Labor/2nd/3rd Weight Sex Type Anes PTL Ruby A1 A5 Name Clin Term Term Term Last Filed Vital Signs Vital Sign Reading Time Taken Comments Blood Pressure 118/82 11/04/2024 9:00 AM CDT Pulse 83 11/04/2024 9:00 AM CDT Temperature 36.5 C (97.7 F) 11/04/2024 9:00 AM CDT Respiratory Rate - - Oxygen Saturation 99% 11/04/2024 9:00 AM CDT Inhaled Oxygen Concentration - - Weight 89.7 kg (197 lb 12.8 oz) 11/04/2024 9:00 AM CDT Height 172.7 cm (5' 8) 07/31/2024 8:46 AM CDT Body Mass Index 30.08 07/31/2024 8:46 AM CDT Plan of Treatment Health Maintenance Due Date Last Done Comments Hepatitis C Screening 1972 Hepatitis B Screening 1990 Zoster Vaccine (1 of 2) 2022 Breast Cancer Screening-Mammogram 03/30/2023 03/30/2022, 12/04/2020, 10/06/2019, Additional history exists Covid-19 Vaccine (2 - season) 2024 10/02/2020 Influenza Vaccine (#1) 2025 Regular Well Visit/Exam 18-64 07/31/2025 07/31/2024, 06/27/2023, 03/29/2022, Additional history exists Depression Screening 11/04/2025 11/04/2024, 07/31/2024, 09/24/2023, Additional history exists Colon Cancer Screening-Colonoscopy 03/20/2026 03/20/2023 DTaP/Tdap/Td Vaccine (2 - Td or Tdap) 03/01/2027 03/01/2017 Pneumococcal vaccine <65 Aged Out No longer eligible based on patient's age to complete this topic Procedures Procedure Name Priority Date/Time Associated Diagnosis Comments MRI CERVICAL SPINE WO CONTRAST Schedule Routine, Read Routine (OP Routine) 12/13/2024 9:14 AM CDT Neck pain COLONOSCOPY Routine 03/20/2023 12:11 PM CDT SCREENING MAMMOGRAM BILATERAL W HOLLIE Schedule Routine, Read Routine (OP Routine) 03/30/2022 1:23 PM BIOMASS BOILER OPERATOR Breast cancer screening by mammogram from Last 3 Months or Most Recently Relevant to Health Maintenance Results * MRI Cervical Spine WO Contrast (12/13/2024 9:14 AM CDT) Anatomical Region Laterality Modality Spine N/A Magnetic Resonan ce 12/15/2024 11:5 5 AM CDT Narrative 12/15/2024 12:02 PM CDT EXAM DESCRIPTION: MRI CERVICAL SPINE WO CONTRAST REASON FOR STUDY: Neck pain with radicular symptoms. Failed PT x 6 weeks, Neck pain with radicular symptoms. Failed PT x 6 weeks Injury at work from lifting a heavy object. Chronic neck pain that radiates down the right side. Failed Pt x 6 weeks TECHNIQUE: Sagittal and Axial imaging includes T1, T2, STIR and gradient echo sequences. COMPARISON: None available. FINDINGS: ALIGNMENT: Reversal of the normal cervical lordosis. Mild retrolisthesis of C5 on C6. VERTEBRAE: No gross acute compression fracture in the cervical spine. Multilevel endplate degenerative changes and marginal spur formation, most noticeable from C4-C5 through C6-C7 DISCS: Multilevel disc desiccation and height loss, most noticeable at C5-C6. HARDWARE: None in the spine. CORD: The cervical cord signal is within normal limits. C2-C3: Central disc protrusion indents the ventral thecal sac. Dorsal CSF cleft is maintained. Bilateral facet arthropathy without significant neural foraminal narrowing. C3-C4: No significant disc bulge or spinal canal stenosis. Uncovertebral spurring and facet arthropathy without significant neural foraminal narrowing. C4-C5: Posterior disc osteophyte complex without significant spinal canal stenosis. Uncovertebral spurring and facet arthropathy without significant neural foraminal narrowing. C5-C6: Posterior disc osteophyte complex abuts the ventral cord. Mild ventral spinal canal stenosis. Uncovertebral spurring and facet arthropathy with [id number] neural foraminal narrowing. C6-C7: Posterior disc osteophyte complex without significant spinal canal stenosis. Uncovertebral spurring and facet arthropathy without significant neural foraminal narrowing. C7-T1: No significant disc bulge, spinal canal or neural foraminal narrowing. UPPER THORACIC: Incompletely imaged. Degenerative changes without high-grade spinal canal stenosis. OTHER: Note made of few scattered nonspecific bilateral cervical chain lymph nodes. IMPRESSION: 1. [id number] cervical disc degeneration with uncovertebral spurring and facet arthropathy as described. The C5-C6 posterior disc osteophyte complex abuts the ventral cord. 2. Neural foraminal stenosis and other findings as above. 3. Previous cervical spine imaging is not available for comparison. THIS IS AN ELECTRONICALLY VERIFIED FINAL REPORT 12/15/2024 12:02 PM - Electronically signed by Sudheer MALDONADO T: Report ID: [id number] Reading Location: [place] [address] Procedure Note Sudheer Treviño, DO - 12/15/2024 EXAM DESCRIPTION: MRI CERVICAL SPINE WO CONTRAST REASON FOR STUDY: Neck pain with radicular symptoms. Failed PT x 6weeks, Neck pain with radicular symptoms. Failed PT x 6 weeks Injury at work from lifting a heavy object. Chronic neck pain thatradiates down the right side. Failed Pt x 6 weeks TECHNIQUE: Sagittal and Axial imaging includes T1, T2, STIR and gradientecho sequences. COMPARISON: None available. FINDINGS: ALIGNMENT: Reversal of the normal cervical lordosis. Mildretrolisthesis of C5 on C6. VERTEBRAE: No gross acute compression fracture in the cervical spine. Multilevel endplate degenerative changes and marginal spur formation, most noticeable from C4-C5 through C6-C7 DISCS: Multilevel disc desiccation and height loss, most noticeable at C5-C6. HARDWARE: None in the spine. CORD: The cervical cord signal is within normal limits. C2-C3: Central disc protrusion indents the ventral thecal sac. Dorsal CSF cleft is maintained. Bilateral facet arthropathy without significantneural foraminal narrowing. C3-C4: No significant disc bulge or spinal canal stenosis. Uncovertebral spurring and facet arthropathy without significant neural foraminalnarrowing. C4-C5: Posterior disc osteophyte complex without significant spinal canal stenosis. Uncovertebral spurring and facet arthropathy withoutsignificant neural foraminal narrowing. C5-C6: Posterior disc osteophyte complex abuts the ventral cord. Mildventral spinal canal stenosis. Uncovertebral spurring and facet arthropathy with [id number] neural foraminal narrowing. C6-C7: Posterior disc osteophyte complex without significant spinal canal stenosis. Uncovertebral spurring and facet arthropathy withoutsignificant neural foraminal narrowing. C7-T1: No significant disc bulge, spinal canal or neural foraminalnarrowing. UPPER THORACIC: Incompletely imaged. Degenerative changes without high-grade spinal canal stenosis. OTHER: Note made of few scattered nonspecific bilateral cervical chainlymph nodes. IMPRESSION: 1. Xfoh-dp-[id number] cervical disc degeneration with uncovertebralspurring and facet arthropathy as described. The C5-C6 posterior disc osteophyte complex abuts the ventral cord. 2. Neural foraminal stenosis and other findings as above. 3. Previous cervical spine imaging is not available for comparison. THIS IS AN ELECTRONICALLY VERIFIED FINAL REPORT 12/15/2024 12:02 PM - Electronically signed by Sudheer MALDONADO T: Report ID: [id number] Reading Location: [id number] Mirela LIRA IMG MRI PROCEDURES Final R esult * (ABNORMAL) Colonoscopy (03/20/2023 12:11 PM CDT) Anatomical Region Laterality Modality Other Historical Provider MD ENDOSCOPY PROCEDURES Edit ed Result - Final * Screening Mammogram Bilateral W Hollie (03/30/2022 1:23 PM BIOMASS BOILER OPERATOR) Anatomical Region Laterality Modality Breast Bilateral Mammography 03/30/2022 1:52 PM BIOMASS BOILER OPERATOR Impressions 03/30/2022 1:52 PM BIOMASS BOILER OPERATOR There is no mammographic evidence of malignancy. A 1 year screening mammogram is recommended. BI-RADS: 1 - Negative. The patient has been or will be contacted. The patient will be entered into a reminder system with a target due date of 1 year for her next mammogram. Electronically signed by: ASTRID WALSH Narrative 03/30/2022 1:52 PM BIOMASS BOILER OPERATOR EXAMINATION: SCREENING MAMMOGRAM BILATERAL W HOLLIE ORDERING HEALTHCARE PROVIDER: MIRELA LOBO HISTORY: Routine screening mammography. COMPARISON: 01/06/2015, 12/26/2012. TECHNIQUE: CC and MLO views of both breasts were obtained with digital technique using digital breast tomosynthesis with C view. Computer aided detection was utilized. FINDINGS: DENSITY: The breasts are extremely dense, which lowers the sensitivity of mammography. BREASTS: There is no new suspicious finding in either breast on mammogram. Mirela LIRA IMG MAMMO PROCEDURES Final Result from Last 3 Months or Most Recently Relevant to Health Maintenance Insurance [employer] [employer] Care Teams Drum Plater Relationship Specialty Start Date End Date Mirela Lobo PA [id number] [place], [place] [id number] PCP - General Internal Medicine 01/28/19
--- NOTE | 2025-01-05 13:21 | ED.UPPEXIN ---
HPI - Extremity Injury (Upper) General Chief Complaint: Extremity Injury, Upper Stated Complaint: right shoulder/back pain Time Seen by Provider: 01/05/25 13:21 Focused HPI: This is a 54 year old female that presents to the ER for right sided neck pain, arm pain. Reports history of spinal stenosis. Reports this has been ongoing over the last several years. Reports exacerbation ongoing over a couple of weeks. No recent injuries. Reports she is taking Tylenol and muscle relaxers with little relief. She is referred to a neurosurgeon, but does not have an appointment yet. She has not taken anything today for pain. She recently had an MRI of her cervical spine GENERAL: Well-appearing, well-nourished, and in no acute distress. HEAD: Normocephalic, atraumatic. CHEST: No respiratory distress. HEART: Regular rate NEURO: ?Alert and oriented x3. Patient screened in triage and initial orders placed.? ?Additional care and disposition to be based upon?diagnostic testing and treatment. Related Data Allergies Allergy/AdvReac Type Severity Reaction Status Date / Time No Known Allergies Allergy Verified 01/05/25 12:22 Review of Systems Review of Systems: All systems reviewed & are unremarkable except as noted in HPI and below Exam Narrative: GENERAL: Well-appearing, well-nourished, and in no acute distress. HEAD: Normocephalic, atraumatic. EYES: EOMI. CHEST: No respiratory distress. HEART: Regular rate EXTREMITIES: Normal range of motion. No edema. SKIN: Warm, dry, no rash. NEURO: No focal deficits. Alert and oriented x3. PSYCH: Normal mood and affect Course Vital Signs Vital signs: Vital Signs Temperature 98.2 F 01/05/25 12:20 Pulse Rate 98 01/05/25 12:20 Respiratory Rate 18 01/05/25 12:20 Blood Pressure 131/76 01/05/25 12:20 Pulse Oximetry 100 01/05/25 12:20 Oxygen Delivery Room Air 01/05/25 12:20 Temperature 98.2 F 01/05/25 12:20 Pulse Rate 98 01/05/25 12:20 Respiratory Rate 18 01/05/25 12:20 Blood Pressure 131/76 01/05/25 12:20 Pulse Oximetry 100 01/05/25 12:20 Oxygen Delivery Room Air 01/05/25 12:20 MDM - Extremity Injury (Upper) MDM Narrative Medical decision making narrative: Patient presents the emergency department for chronic neck pain. No recent injuries or trauma. She is neurovascularly intact. Recently had an MRI, is getting follow-up with a neurosurgeon. Patient was able to pull up her MRI which showed facet arthropathy, mild to moderate disc degeneration. Patient given tylenol, toradol. Will trial steroid taper. Instructed to have continued specialist follow up. She was given warnings to return to the ER Medical Records Attestation: I reviewed the patient's medical records. Medical records narrative: MRI cervical spine 12/15: Mild to moderate cervical disc degeneration with uncovertebral spurring and facet arthropathy. The C5-C6 posterior disc osteophyte complex abuts the ventral cord. Neural foraminal stenosis Critical Care Time Critical Care Time Critical Care Time: No Discharge Plan Discharge Clinical Impression: Chronic neck pain Patient Disposition: Home Condition: Stable Instructions: Cervical Radiculopathy (ED) Additional Instructions: Return to the ER if you experience fever, redness and swelling of your arm, numbness, weakness, or any other symptoms that are concerning to you Rest. Heat and/or ice to the area. Over the counter pain medication as needed. Lidocaine patch to the area of pain as needed. Take steroid taper as prescribed Follow up with neurosurgery for further management Patient Language: Wolof Prescriptions: New methylprednisolone 4 mg tablets,dose pack See Rx Instructions .ROUTE .COMPLEX Qty: 21 0RF Rx Instructions: orally per package directions lidocaine 5 % adhesive patch,medicated 1 patch topical DAILY Qty: 15 0RF Rx Instructions: leave on most painful area for up to 12 hrs No Action ibuprofen 800 mg tablet 800 mg PO TID PRN (Reason: pain) 7 Days Qty: 21 0RF acetaminophen 500 mg tablet 1,000 mg PO TID PRN (Reason: felicia) 7 Days Qty: 42 0RF methocarbamol 750 mg tablet 1,500 mg PO TID Qty: 30 0RF Follow-up/Referrals: Yamil,PANKAJ Dietz [Primary Care Provider] -
[2025-01-05] MEDS: ACETAMINOPHEN 500 MG TABLET 1000 MG PO (13:37)
[2025-01-05] MEDS: LIDOCAINE 5% PATCH 1 PATCH TRANSDERM (13:38)
[2025-01-05] MEDS: KETOROLAC 30 MG/ML VIAL (*BKC) IM (13:38)
--- OUTSIDE RECORDS SUMMARY | 2025-01-05 15:58 | XMS_ITS | Encounter Summary ---
Author Organization [facility] Healthcare Address [address] [place] [address] Care Team Providers Care Wire Charger Name Role Phone Mirela Lobo Primary Care Provider [phone]- [phone] Reason for Visit * Reason Onset Date Comments Med Refill 12/23/2024 Encounter Details Date Type Department Care Team (Late st Contact Info) Description 12/23/2024 Telephone [facility] Medical Group Family Medicine [address] [place] [address] Mirela Lobo PA [address] [place] [address] Med Refill Social History Tobacco [...] 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 * Telephone Encounter - Mirela Lobo [...] miss work today due to the pain [id number] - [facility] [address] Does message need to be routed? Yes-Action Needed documented in this encounter Plan of Treatment Not on file documented as of this encounter Visit Diagnoses Not on filedocumented in this encounter Care Teams Wire Charger Relationship Specialty Start Date End Date Mirela Lobo PA [address] [place] [address] PCP - General Internal Medicine 01/28/19 documented as of this encounter
--- OUTSIDE RECORDS SUMMARY | 2025-01-05 15:58 | XMS_ITS | Clinical Summary ---
Author Organization [facility] Address [address] [place] [address] Care Team Providers Care Dairy Technologist Name Role Phone Mirela Lobo Primary Care Provider [phone]- [phone] Allergies No known active allergies Medications multivit-min/fe [...] screenings. Assessment & Plan (07/18/2023 10:45 PM CUPBOARD BUILDER): Encouraged healthy lifestyle, good nutrition and exercise. Encouraged Calcium and Vitamin D and weight bearing exercise for bone health. Reviewed immunizations Reviewed age appropirate screenings. Skin lesion 07/18/2023 Chronic right shoulder pain 07/18/2023 Assessment & Plan (07/18/2023 10:43 PM CUPBOARD BUILDER): Patient is complaining of right shoulder pain and left-sided sciatica. Discussed anti-inflammatories to help with her symptoms. Offered x-rays but patient declined. Offered physical therapy and patient declined. If symptoms persist and she decides she wants to pursue she may call at any time Sciatica of left side 07/18/2023 Assessment & Plan (07/18/2023 10:43 PM CUPBOARD BUILDER): Patient is complaining of right shoulder pain [...] provided Assessment & Plan (07/18/2023 10:44 PM CUPBOARD BUILDER): Mammogram order provided Assessment & Plan (03/29/2022 2:50 PM CUPBOARD BUILDER): Mammogram order provided Diabetes mellitus screening 03/29/2022 Assessment & Plan (07/18/2023 10:44 PM CUPBOARD BUILDER): Check labs Assessment & Plan (09/26/2022 9:04 PM CDT): Check labs Assessment & Plan (03/29/2022 2:51 PM CUPBOARD BUILDER): Check labs Fatigue 02/25/2021 Assessment & Plan (08/09/2024 9:58 PM CDT): Probably multifactorial. Check labs and followup to re-evaluate Assessment & Plan (07/18/2023 10:44 PM CUPBOARD BUILDER): Probably multifactorial. Check labs and followup to re-evaluate Assessment & Plan (09/26/2022 9:04 PM CDT): Probably multifactorial. Check labs and followup to re-evaluate Assessment & Plan (03/29/2022 2:50 PM CUPBOARD BUILDER): Probably multifactorial. Check labs and followup to [...] Flonase Assessment & Plan (07/18/2023 10:45 PM CUPBOARD BUILDER): Continue Zyrtec Flonase and Singulair Assessment & Plan (09/26/2022 9:03 PM CDT): Continue Zyrtec Singulair and Flonase Assessment & Plan (03/29/2022 2:49 PM CUPBOARD BUILDER): Continue with Singulair Zyrtec and Flonase. Refills [...] needed. Assessment & Plan (07/18/2023 10:44 PM CUPBOARD BUILDER): Encouraged patient to follow low fat/low chol diet like the Mediterranean diet. Increase good fats in the diet. Increase exercise. Monitor labs as needed. Assessment & Plan (03/29/2022 2:49 PM CUPBOARD BUILDER): Encouraged patient to follow low fat/low chol [...] maintain. Assessment & Plan (07/18/2023 10:44 PM CUPBOARD BUILDER): Weight/BMI is in healthy range. Continue healthy lifestyle to maintain. Assessment & Plan (03/29/2022 2:21 PM CUPBOARD BUILDER): Weight/BMI is in healthy range. Continue healthy lifestyle to maintain. Colon cancer screening 03/29/202207/18 Assessment & Plan (09/26/2022 9:04 PM CDT): Colonoscopy scheduled in February with Dr. Ford Assessment & Plan (03/29/2022 2:51 PM CUPBOARD BUILDER): Refer to [facility] for colonoscopy screening. BMI 25.0-25.9,adult 02/25/2021 03/29/20 22 Assessment & Plan (02/25/2021 8:06 AM CDT): Obesity is unchanged. Discussed the patient's BMI. The BMI is above average. BMI management plan is completed. BMI Follow-up includes: nutrition counseling, exercise counseling and education provided. Influenza vaccine refused 03/06/2020 Assessment & Plan (03/29/2022 2:49 PM CUPBOARD BUILDER): Flu vaccine updated in the office Assessment [...] 024 Assessment & Plan (03/29/2022 2:49 PM CUPBOARD BUILDER): Encouraged healthy lifestyle, good nutrition and exercise. [...] Department Care Team Description 12/23/2024 Orders Only [address] [place] [address] Mirela Lobo PA 12/23/[address] [place] [phone] Mirela Lobo PA Med Refill 12/18/2024 Results Follow-Up [address] [place] [phone] Mirela Lobo PA MRI Cervical Spine WO Contrast 12/13/2024 8:36 AM CDT - 12/13/2024 11:59 PM CDT Hospital Encounter [facility] [address] [place] [address] Neck pain Discharge Disposition: Discharge to home or self care 11/04/2024 9:00 AM CDT Office Visit [address] [place] [phone] Mirela Lobo PA Cervical radiculopathy (Primary Dx); [...] 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 Uncovertebral spurring and facet arthropathy with hlmh-ao-cxkanhjv neural foraminal narrowing. C6-C7: Posterior disc osteophyte complex without significant spinal canal stenosis. Uncovertebral spurring and facet arthropathy without significant neural foraminal narrowing. C7-T1: No significant disc bulge, spinal canal or neural foraminal narrowing. UPPER THORACIC: Incompletely imaged. Degenerative changes without high-grade spinal canal stenosis. OTHER: Note made of few scattered nonspecific bilateral cervical chain lymph nodes. IMPRESSION: 1. Ltxc-di-qkzhutjf cervical disc degeneration with uncovertebral spurring and facet arthropathy as described. The C5-C6 posterior disc osteophyte complex abuts the ventral cord. 2. Neural foraminal stenosis and other findings as above. 3. Previous cervical spine imaging is not available for comparison. THIS IS AN ELECTRONICALLY VERIFIED FINAL REPORT 12/15/2024 12:02 PM - Electronically signed by Sudheer MALDONADO T: Report ID: [id number] Reading Location: [place] [address] Procedure Note Sudheer Treviño, DO - 12/15/2024 [...] stenosis. Uncovertebral spurring and facet arthropathy with fenk-lh-flhcoqls neural foraminal narrowing. C6-C7: Posterior disc osteophyte complex without significant spinal canal stenosis. Uncovertebral spurring and facet arthropathy withoutsignificant neural foraminal narrowing. C7-T1: No significant disc bulge, spinal canal or neural foraminalnarrowing. UPPER THORACIC: Incompletely imaged. Degenerative changes without high-grade spinal canal stenosis. OTHER: Note made of few scattered nonspecific bilateral cervical chainlymph nodes. IMPRESSION: 1. Twpt-oe-pgczwhwd cervical disc degeneration with uncovertebralspurring and facet arthropathy as described. The C5-C6 posterior disc osteophyte complex abuts the ventral cord. 2. Neural foraminal stenosis and other findings as above. 3. Previous cervical spine imaging is not available for comparison. THIS IS AN ELECTRONICALLY VERIFIED FINAL REPORT 12/15/2024 12:02 PM - Electronically signed by Sudheer MALDONADO T: Report ID: [id number] Reading Location: [id number] Mirela LIRA IMG MRI PROCEDURES Final R esult * (ABNORMAL) Colonoscopy (03/20/2023 12:11 PM CDT) Anatomical Region Laterality Modality Other Historical Provider MD ENDOSCOPY PROCEDURES Edit ed Result - Final * Screening Mammogram Bilateral W Hollie (03/30/2022 1:23 PM CUPBOARD BUILDER) Anatomical Region Laterality Modality Breast Bilateral Mammography 03/30/2022 1:52 PM CUPBOARD BUILDER Impressions 03/30/2022 1:52 PM CUPBOARD BUILDER There is no mammographic evidence of malignancy. A 1 year screening mammogram is recommended. BI-RADS: 1 - Negative. The patient has been or will be contacted. The patient will be entered into a reminder system with a target due date of 1 year for her next mammogram. Electronically signed by: ASTRID WALSH Narrative 03/30/2022 1:52 PM CUPBOARD BUILDER EXAMINATION: SCREENING MAMMOGRAM BILATERAL W HOLLIE ORDERING [...] Most Recently Relevant to Health Maintenance Insurance [facility] IDPA Care Teams Dairy Technologist Relationship Specialty Start Date End Date Mirela Lobo PA [address] [place], [place] [id number] PCP - General Internal Medicine 01/28/19
--- OUTSIDE RECORDS SUMMARY | 2025-01-05 15:58 | XMS_ITS | Clinical Summary ---
Author Organization [facility] Health Address [address] [place] [address] Care Team Providers Care Water Resources Business Segment Leader Name Role Phone Mirela Lobo PA-C Primary Care Provider [phone] -[phone] Source Comments [facility],non-owned Affiliates and Associated Physician Practices is amultiple site organization consisting of ambulatory clinics and hospital sitesin [place], [place], [place] and [place]. This disclosure is being madepursuant to the Care Everywhere program and may not contain all information available regarding this patient. Last updated 18.[facility] [employer] Allergies No known active allergies Encounters Date Type Department Care Team Description 12/30/2024 Telephone [facility] Orthoped[facility] [address] [place] [address] Naina Curran Appointment from Last [...] Comments Blood Pressure 118/82 07/14/2019 1:54 PM RN TRIAGE Pulse 95 07/14/2019 1:54 PM RN TRIAGE Temperature 36.5 C (97.7 F) 07/14/2019 1:54 PM RN TRIAGE Respiratory Rate 18 07/14/2019 1:54 PM RN TRIAGE Oxygen Saturation 99% 07/14/2019 1:54 PM RN TRIAGE Inhaled Oxygen Concentration - - Weight 68 kg (150 lb) 07/14/2019 1:54 PM RN TRIAGE Height 177.8 cm (5' 10) 07/14/2019 1:54 PM RN TRIAGE Body Mass Index 21.52 07/14/2019 1:54 PM RN TRIAGE Plan of Treatment Health Maintenance Due Date [...] patient's age to complete this topic Insurance [facility] Care Teams Water Resources Business Segment Leader Relationship Specialty Start Date End Date Mirela Lobo PA-C PCP - General Physician Post Adoption Coordinator 07/15/19
== END 2025-01-05 15:58 | disposition home or self-care (01) ==
LOC: ANHED 15:10
PROVIDERS: Emergency Provider Physician Assistant; PCP Physician Assistant
DX: M54.2 Cervicalgia (principal); G89.29 Other chronic pain
CPT/HCPCS: 96372; 99283; A9270; J1885